=== PATIENT | female | born 1930 | race Caucasian/White ===

== ENCOUNTER 2020-10-13 17:23 | Emergency (ER) | payer MEDICARE ==
[2020-10-13] MEDS ORDERED: Sodium Chloride 0.9% 10 ML Syringe FLUSH PRN (18:34)
--- NOTE | 2020-10-13 18:44 | EDM.PDOC ---
ED HPI GENERAL MEDICAL PROBLEM - General Chief Complaint: Genitourinary Problem Stated Complaint: UTI, FATIGUE, FEVER Time Seen by Provider: 10/13/20 18:18 Source of Information: Reports: Patient, Family History Limitations: Reports: No Limitations - History of Present Illness INITIAL COMMENTS - FREE TEXT/NARRATIVE: Reyna Hendricks is an 89-year-old female presenting to the ED for evaluation of possible UTI. Patient started having symptoms a week ago when she had some dysuria and burning with urination. She initially had some hematuria but that is cleared up over the week. Over the last several days she has had increased suprapubic pain and generalized discomfort. Today, her family member noted that she was a little bit more confused and had more difficulty ambulating around the house. She is normally very independent. Today she was noted to have a fever of 101.5 F. She has had some chills as well. She had one episode of loose stools this morning. Family member also notes that she has had diminished appetite over the last several days did not eat dinner last night or breakfast this morning. She denies any nausea or vomiting. She denies any back pain. - Related Data Allergies Allergy/AdvReac Type Severity Reaction Status Date / Time No Known Allergies Allergy Verified 10/13/20 17:54 Home Meds: Home Meds NK [No Known Home Meds] 10/13/20 [History] Past Medical History HEENT History: Reports: Impaired Vision Genitourinary History: Reports: None MUSICAL THERAPIST History: Reports: Musculoskeletal History: Reports: None - Past Surgical History Head Surgeries/Procedures: Reports: None HEENT Surgical History: Reports: Cataract Surgery Female Surgical History: Reports: Hysterectomy Musculoskeletal Surgical History: Reports: Knee Replacement Dermatological Surgical History: Reports: None Social & Family History - Tobacco Use Tobacco Use Status *Q: Never Tobacco User Second Hand Smoke Exposure: No - Caffeine Use Caffeine Use: Reports: Coffee, Soda - Alcohol Use Days Per Week of Alcohol Use: 7 Number of Drinks Per Day: 2 Total Drinks Per Week: 14 - Recreational Drug Use Recreational Drug Use: No ED ROS GENERAL - Review of Systems Review Of Systems: See Below Constitutional: Reports: Fever, Chills, Malaise, Decreased Appetite HEENT: Reports: No Symptoms Respiratory: Reports: No Symptoms Cardiovascular: Reports: No Symptoms Endocrine: Reports: No Symptoms GI/Abdominal: Reports: Abdominal Pain (Suprapubic pain) : Reports: Dysuria, Frequency, Pain, Urgency Musculoskeletal: Reports: No Symptoms Skin: Reports: No Symptoms Neurological: Reports: Confusion (Mild fogginess to thought process), Difficulty Walking (Little more unsteady on her feet) Psychiatric: Reports: No Symptoms Hematologic/Lymphatic: Reports: No Symptoms Immunologic: Reports: No Symptoms ED EXAM, RENAL/ - Physical Exam Exam: See Below Exam Limited By: No Limitations General Appearance: Alert, No Apparent Distress Eye Exam: Bilateral Eye: EOMI, PERRL Throat/Mouth: Normal Inspection, Normal Lips, Normal Oropharynx, Normal Voice, No Airway Compromise Head: Atraumatic, Normocephalic Neck: Normal Inspection, Supple, Non-Tender, Full Range of Motion. No: Lymphadenopathy (R), Lymphadenopathy (L) Respiratory/Chest: No Respiratory Distress, Lungs Clear, Normal Breath Sounds Cardiovascular: Normal Peripheral Pulses, Regular Rate, Rhythm, No Murmur GI/Abdominal: Normal Bowel Sounds, Soft, Non-Tender, No Distention Back Exam: Normal Inspection, Full Range of Motion Extremities: Normal Inspection, Normal Range of Motion, Normal Capillary Refill Neurological: Alert, Oriented, Normal Cognition, No Motor/Sensory Deficits Psychiatric: Normal Affect, Normal Mood Skin Exam: Warm, Dry, Intact, Normal Color Lymphatic: No Adenopathy Course - Vital Signs Last Recorded V/S: Last Vital Signs Temp 38.1 C 10/13/20 18:00 Pulse 118 H 10/13/20 18:00 Resp 18 10/13/20 18:00 BP 145/74 H 10/13/20 18:00 Pulse Ox 93 L 10/13/20 18:00 - Orders/Labs/Meds Orders: Active Orders 24 hr Category Date Time Status CULTURE URINE [RM] Stat Lab 10/13/20 18:30 Received Sodium Chloride 0.9% [Normal Saline] 1,000 ml Med 10/13/20 18:45 Active IV ASDIRECTED Sodium Chloride 0.9% [Saline Flush] Med 10/13/20 18:34 Active 10 ml FLUSH ASDIRECTED PRN Saline Lock Insert [OM.PC] Routine Oth 10/13/20 18:34 Ordered Medication Orders Sodium Chloride (Normal Saline) 1,000 mls @ 999 mls/hr IV ASDIRECTED [facility] Last Admin: 10/13/20 18:43 Dose: 999 mls/hr Documented by: RUSTY Sodium Chloride (Sodium Chloride 0.9% 10 Ml Syringe) 10 ml FLUSH ASDIRECTED PRN PRN Reason: Keep Vein Open Last Admin: 10/13/20 18:43 Dose: 10 ml Documented by: RUSTY Labs: Laboratory Tests 10/13/20 10/13/20 10/13/20 Range/Units 18:26 18:40 18:40 WBC 13.6 H (4.5-11.0) K/uL RBC 4.01 (3.30-5.50) M/uL Hgb 11.9 L (12.0-15.0) g/dL Hct 36.7 (36.0-48.0) % MCV 92 (80-98) fL MCH 30 (27-31) pg MCHC 32 (32-36) % Plt Count 133 L (150-400) K/uL Neut % (Auto) 86.8 H (36-66) % Lymph % (Auto) 2.6 L (24-44) % [place] % (Auto) 10.5 H (2-6) % Eos % (Auto) 0.0 L (2-4) % Baso % (Auto) 0.1 (0-1) % Sodium 132 L (140-148) mmol/L Potassium 3.7 (3.6-5.2) mmol/L Chloride 96 L (100-108) mmol/L Carbon Dioxide 24 (21-32) mmol/L Anion Gap 15.7 H (5.0-14.0) mmol/L BUN 28 H (7-18) mg/dL Creatinine 1.3 H (0.6-1.0) mg/dL Est Cr Clr Drug Dosing 23.66 mL/min Estimated GFR (MDRD) 39 L (>60) Glucose 138 H (74-106) mg/dL Lactic Acid (0.4-2.0) mmol/L Calcium 7.9 L (8.5-10.1) mg/dL Total Bilirubin 1.2 H (0.2-1.0) mg/dL AST 37 (15-37) U/L ALT 27 (12-78) U/L Alkaline Phosphatase 82 (46-116) U/L Total Protein 6.6 (6.4-8.2) g/dL Albumin 2.6 L (3.4-5.0) g/dL Globulin 4.0 H (2.3-3.5) g/dL Albumin/Globulin Ratio 0.7 L (1.2-2.2) Urine Color Yellow (YELLOW) Urine Appearance Cloudy A (CLEAR) Urine pH 6.0 (5.0-8.0) Ur Specific [place] 1.020 (1.008-1.030) Urine Protein >=300 H (NEGATIVE) mg/dL Urine Glucose (UA) Negative (NEGATIVE) mg/dL Urine Ketones Negative (NEGATIVE) mg/dL Urine Occult Blood Large H (NEGATIVE) Urine Nitrite Positive H (NEGATIVE) Urine Bilirubin Negative (NEGATIVE) Urine Urobilinogen 1.0 (0.2-1.0) EU/dL Ur Leukocyte Esterase Large H (NEGATIVE) Urine RBC 75-100 H (0-5) Urine WBC Packed H (0-5) Ur Epithelial Cells Not seen Amorphous Sediment Not seen Urine Bacteria Many Urine Mucus Not seen 10/13/20 Range/Units 18:40 WBC (4.5-11.0) K/uL RBC (3.30-5.50) M/uL Hgb (12.0-15.0) g/dL Hct (36.0-48.0) % MCV (80-98) fL MCH (27-31) pg MCHC (32-36) % Plt Count (150-400) K/uL Neut % (Auto) (36-66) % Lymph % (Auto) (24-44) % [place] % (Auto) (2-6) % Eos % (Auto) (2-4) % Baso % (Auto) (0-1) % Sodium (140-148) mmol/L Potassium (3.6-5.2) mmol/L Chloride (100-108) mmol/L Carbon Dioxide (21-32) mmol/L Anion Gap (5.0-14.0) mmol/L BUN (7-18) mg/dL Creatinine (0.6-1.0) mg/dL Est Cr Clr Drug Dosing mL/min Estimated GFR (MDRD) (>60) Glucose (74-106) mg/dL Lactic Acid 1.1 (0.4-2.0) mmol/L Calcium (8.5-10.1) mg/dL Total Bilirubin (0.2-1.0) mg/dL AST (15-37) U/L ALT (12-78) U/L Alkaline Phosphatase (46-116) U/L Total Protein (6.4-8.2) g/dL Albumin (3.4-5.0) g/dL Globulin (2.3-3.5) g/dL Albumin/Globulin Ratio (1.2-2.2) Urine Color (YELLOW) Urine Appearance (CLEAR) Urine pH (5.0-8.0) Ur Specific [place] (1.008-1.030) Urine Protein (NEGATIVE) mg/dL Urine Glucose (UA) (NEGATIVE) mg/dL Urine Ketones (NEGATIVE) mg/dL Urine Occult Blood (NEGATIVE) Urine Nitrite (NEGATIVE) Urine Bilirubin (NEGATIVE) Urine Urobilinogen (0.2-1.0) EU/dL Ur Leukocyte Esterase (NEGATIVE) Urine RBC (0-5) Urine WBC (0-5) Ur Epithelial Cells Amorphous Sediment Urine Bacteria Urine Mucus Meds: Medications Generic Name Dose Route Start Last Admin Trade Name Freq PRN Reason Stop Dose Admin Sodium Chloride 1,000 mls @ 999 mls/hr 10/13/20 18:45 10/13/20 18:43 Normal Saline IV 999 mls/hr ASDIRECTED VAL Administration Sodium Chloride 10 ml 10/13/20 18:34 10/13/20 18:43 Sodium Chloride 0.9% 10 Ml Syringe FLUSH 10 ml ASDIRECTED PRN Administration Keep Vein Open - Re-Assessments/Exams Free Text/Narrative Re-Assessment/Exam: 10/13/20 19:34 I reviewed the patient's labs showing a leukocyte count of 13.6 with a hemoglobin of 11.9, hematocrit of 36.7, and platelet count of 133,000. Her comprehensive metabolic panel significant for sodium 132, potassium 3.7, chloride of 96, bicarbonate of 24, BUN of 28 with a creatinine of 1.3. Her calculated GFR is 39. Calcium of 7.9 with an albumin of 2.6 and a corrected calcium in the normal level. Her bilirubin is elevated 1.2 and her lactate is 1.1. Urinalysis is positive for nitrites large leukocyte esterase 75-100 RBCs with packed field WBCs. This is consistent with an acute urinary tract infection. My plan is as the patient is not septic and does not require hospitalization, that we will start her on cephalexin 250 mg twice daily for 7 days. Urine culture is pending. She should continue to take Tylenol or i buprofen for fever control, push fluids to remain hydrated and take the medication to completion. Indications return to the ED were discussed but at this time we believe she is suitable for discharge home in satisfactory condition. The cephalexin was sent out to the [facility] machine so she may start it tonight. Departure - Departure Time of Disposition: 19:36 Disposition: Home, Self-Care 01 Clinical Impression: UTI, Urinary tract infectious disease, Dehydration - Discharge Information Instructions: Urinary Tract Infection, Adult, [id number], Dehydration, Adult, [id number] Referrals: PCP,None [Primary Care Provider] - Forms: ED Department Discharge Care Plan Goals: Your work-up today has shown that you have significant urinary tract infection a nd dehydration. I encourage you to drink at least 10 ounces of water every hour you are awake. We are going to start you on cephalexin 250 mg twice daily for 7 days for urinary tract infection. A urine culture is pending and if you are notified by the hospital in 2 to 3 days to change antibiotics is because the organism in your urine is resistant to the biotic that you are currently on. Continue to take Tylenol or ibuprofen for fever control. Sepsis Event Note (ED) - Evaluation Sepsis Screening Result: No Definite Risk - Focused Exam Vital Signs: Vital Signs Temp Pulse Resp BP Pulse Ox 10/13/20 18:00 38.1 C 118 H 18 145/74 H 93 L 10/13/20 17:49 38.1 C 118 H 18 145/74 H 93 L - Problem List & Annotations (1) Dehydration SNOMED Code(s): 75933518 Code(s): E86.0 - DEHYDRATION Status: Acute Priority: Medium Current Visit: Yes (2) UTI, Urinary tract infectious disease SNOMED Code(s): 91887827 Code(s): N39.0 - URINARY TRACT INFECTION, SITE NOT SPECIFIED Status: Acute Priority: Medium Current Visit: Yes - Problem List Review Problem List Initiated/Reviewed/Updated: Yes - My Orders Last 24 Hours: My Active Orders 10/13/20 18:30 CULTURE URINE [RM] Stat 10/13/20 18:34 Sodium Chloride 0.9% [Saline Flush] 10 ml FLUSH ASDIRECTED PRN Saline Lock Insert [OM.PC] Routine 10/13/20 18:45 Sodium Chloride 0.9% [Normal Saline] 1,000 ml IV ASDIRECTED - Assessment/Plan Last 24 Hours: My Active Orders 10/13/20 18:30 CULTURE URINE [RM] Stat 10/13/20 18:34 Sodium Chloride 0.9% [Saline Flush] 10 ml FLUSH ASDIRECTED PRN Saline Lock Insert [OM.PC] Routine 10/13/20 18:45 Sodium Chloride 0.9% [Normal Saline] 1,000 ml IV ASDIRECTED
[2020-10-13] MEDS ORDERED: Sodium Chloride 0.9% 1,000 ML IV SCH (18:45)
[2020-10-13] MEDS ORDERED: Cephalexin 250 MG Cap PO ONE (19:39)
== END 2020-10-13 20:11 | disposition home or self-care (01) ==
LOC: JP.ED 17:23
DX: N39.0 Urinary tract infection, site not specified (principal); E86.0 Dehydration
CPT/HCPCS: 36415; 80053; 81001; 83605; 85025; 87077; 87086; 87186; 99283; 99284; A9270-GY; J7030